=== PATIENT | female | born 1970 | race Caucasian/White ===

== ENCOUNTER 2024-09-18 17:22 | Emergency (ER) | payer BC ==
[~2024-09-18] VITALS: Ht 157.5 cm; Wt 56.7 kg
[2024-09-18] MEDS ORDERED: MACROBID 100 M100 MG (17:24)
[2024-09-18 19:42] LABS: HEMATOCRIT 39.7 % (36.0-45.00); HEMOGLOBIN 13.3 g/dL (12.0-15.00); MEAN CELL VOLUME 93.5 fL (80.00-100.00); MEAN CORPUSCULAR HEMOGLOBIN 31.3 pg (27.00-32.0); MEAN CORPUSCULAR HGB CONC 33.4 g/dl (32.0-36.0); PLATELET COUNT 402 K/uL (150-450); RED BLOOD COUNT 4.25 M/uL (4.00-6.00); RED CELL DISTRIBUTION WIDTH 13.6 % (11.5-14.5)
[2024-09-18 19:46] LABS: PH,URINE 5.5 (5.0-8.0); URINE APPEARANCE Clear; URINE BILIRRUBIN Small (NEGATIVE); URINE BLOOD Negative; URINE COLOR Dark Yellow; URINE GLUCOSE Negative (NEGATIVE); URINE KETONE Negative (NEGATIVE); URINE LEUKOCYTE Trace; URINE NITRATE Positive; URINE PROTEIN Negative (NEGATIVE)
[2024-09-18 19:50] LABS: URINE BACTERIA 948.5 uL (0.0-1933); URINE EPITHELIAL CELLS 26.9 uL (0.0-38.8); URINE RBC 7.5 uL (0.0-20.8); URINE WBC 20.5 uL (0.0-23.2)
[2024-09-18 20:16] LABS: ALBUMIN 3.6 gm/dL (3.4-5.0); BILIRUBIN TOTAL 0.22 mg/dL (0.3-1.2); CALCIUM 8.8 mg/dL (8.5-10.1); CREATININE SERUM 0.9 mg/dL (0.55-1.02); GFR 65.5; GLOBULINA 3.6 G/DL (2.4-3.5); POTASSIUM 3.72 mEq/L (3.5-5.1); TOTAL PROTEIN 7.2 gm/dL (6.4-8.2)
[2024-09-18] MEDS ORDERED: AZO URINARY TR1 EAC1 PO (20:24)
[2024-09-18] MEDS ORDERED: CIPRO500 MG PO (20:24)
== END 2024-09-18 20:54 | disposition home or self-care (01) ==
LOC: ER 17:25
DX: N39.0 Urinary tract infection, site not specified (principal)